=== PATIENT | female | born 1965 | race Hispanic/Latino ===

== ENCOUNTER 2017-10-14 07:37 | Inpatient (IN) | payer OTHER ==
[~2017-10-14] VITALS: Ht 167.6 cm; Wt 95.6 kg
[2017-10-14 08:04] LABS: POINT-OF-CARE METER ID UU13113778
[2017-10-14 08:21] LABS: HEMATOCRIT 34.2 % (36.0-46.0); MCH 26.5 PG (29.0-34.0); MCHC 32.7 G/DL (30.0-36.0); MCV 80.9 FL (83-99); MEAN PLAT.VOLUME 10.8 uM^3 (9.5-12.4); PLATELET COUNT 172 K/uL (156-360); RBC DIS.WIDTH-CV 13.4 % (11.8-14.6); RBC DIS.WIDTH-SD 39.4 % (39-53); RED BLOOD COUNT 4.23 M/uL (3.80-5.20); WHITE BLOOD COUNT 5.8 K/uL (4.1-10.2)
[2017-10-14 08:23] LABS: CARBON DIOXIDE (BICARBONATE) 25.1 MEQ/L (20-31)
[2017-10-14 08:31] LABS: CHLORIDE 103 mEq/L (99-109); SODIUM 136 mEq/L (136-147)
[2017-10-14 08:33] LABS: GLUCOSE 365 mg/dL (70-99)
[2017-10-14 08:35] LABS: ANION GAP 11 MEQ/L (2-14); TOTAL BILIRUBIN 0.5 mg/dL (0.0-1.0)
[2017-10-14 08:37] LABS: ALKALINE PHOSPHATASE 79 IU/L (3-129)
[2017-10-14 08:38] LABS: UREA NITROGEN (BUN) 11 mg/dL (9-23)
[2017-10-14 08:40] LABS: BILIRUBIN SMALL; BLOOD TRACE; COLOR ORANGE ((YELLOW)); GLUCOSE (STRIP) 1000; KETONES 40; PROTEIN (STRIP) 100; UROBILINOGEN 0.2 MG/DL (0.2-1.0)
[2017-10-14 08:40] LABS: LIPASE 8 U/L (1.0-51.0)
[2017-10-14 08:41] LABS: ADD MIUA? YES; LEUKOCYTES TRACE
[2017-10-14 08:43] LABS: GFR ESTIMATE (CALCULATED) > 59 mL/min/
[2017-10-14 08:54] LABS: ABS NEUTROPHIL COUNT 5.2; BAND NEUTROPHILS 18.1 % (0-8.0); EOSINOPHIL ABS CT 0; INSTRUMENT ABS NEUTROPHIL CT 4.8 K/uL; LYMPHOCYTES 6.9 % (15.0-45.0); PLAT.SUFFICIENCY ADEQUATE; POIKILOCYTOSIS 1+; SEG.NEUTROPHILS 72.4 % (46.0-76.0); SMUDGE CELLS 4.3
[2017-10-14 09:09] LABS: BACTERIA 1+ /HPF; EPITHELIAL CELLS RARE /HPF; MUCUS RARE /LPF; RED BLOOD CELLS 0-5 /HPF (0-5); UCUL ADDED? YES
[2017-10-14 09:10] LABS: CASTS NONE SEEN /LPF; CRYSTALS NONE SEEN
[2017-10-14] MEDS ORDERED: VERAPAMIL PO (12:42)
[2017-10-14] MEDS ORDERED: GLUCOPHAGE500 MG PO (12:43)
[2017-10-14] MEDS ORDERED: GLIMEPIRIDE PO (12:44)
[2017-10-14] MEDS ORDERED: OMEPRAZOLE20 M2 PO (12:45)
[2017-10-14 13:18] LABS: POINT-OF-CARE METER ID UU13113747
[2017-10-14 15:57] VITALS: BP 117/68
[2017-10-14 16:46] LABS: ANION GAP 16 MEQ/L (2-14); CHLORIDE 103 MEQ/L (99-109); GFR ESTIMATE (CALCULATED) > 59 mL/min/; GLUCOSE 351 mg/dL (70-99); POTASSIUM 3.5 MEQ/L (3.7-5.4); SAMPLE HEMOLYSIS CHECK 0; SAMPLE ICTERIC CHECK 0; SAMPLE LIPEMIA CHECK 0; SODIUM 137 MEQ/L (136-147); UREA NITROGEN (BUN) 12 mg/dL (9-23)
[2017-10-14 16:56] LABS: POINT-OF-CARE METER ID UU14162508
[2017-10-14 20:13] VITALS: BP 120/84
[2017-10-14 20:25] LABS: ANION GAP 11 MEQ/L (2-14); CHLORIDE 104 MEQ/L (99-109); GFR ESTIMATE (CALCULATED) > 59 mL/min/; GLUCOSE 341 mg/dL (70-99); POTASSIUM 3.6 MEQ/L (3.7-5.4); SAMPLE HEMOLYSIS CHECK 0; SAMPLE ICTERIC CHECK 0; SAMPLE LIPEMIA CHECK 0; SODIUM 136 MEQ/L (136-147); UREA NITROGEN (BUN) 11 mg/dL (9-23)
[2017-10-14 22:02] LABS: POINT-OF-CARE METER ID UU14162508
[2017-10-14 23:20] VITALS: BP 108/67
[2017-10-15 01:40] LABS: POINT-OF-CARE METER ID UU14162508
[2017-10-15 03:03] VITALS: BP 98/54
[2017-10-15 04:27] VITALS: BP 120/75
[2017-10-15 06:02] LABS: POINT-OF-CARE METER ID UU14208750
[2017-10-15 07:15] VITALS: BP 100/60
[2017-10-15 07:15] LABS: EOSINOPHIL (%) 0.3 % (0-5); HEMATOCRIT 30.3 % (36.0-46.0); IMMATURE GRANULOCYTE (%) 0.2 % (0.0-0.7); INSTRUMENT ABS NEUTROPHIL CT 4.4 K/uL; LYMPHOCYTE COUNT 1.3 K/uL (1.0-2.8); MCH 26.1 PG (29.0-34.0); MCV 81.7 FL (83-99); MEAN PLAT.VOLUME 11.6 uM^3 (9.5-12.4); MONOCYTE (%) 7.7 % (3-12); MONOCYTE COUNT 0.5 K/uL (0-0.8); NEUTROPHIL (%) 70.6 % (45-76); NEUTROPHIL COUNT 4.4 K/uL (1.8-6.4); PLATELET COUNT 163 K/uL (156-360); RBC DIS.WIDTH-CV 13.8 % (11.8-14.6); RBC DIS.WIDTH-SD 41.1 % (39-53); RED BLOOD COUNT 3.71 M/uL (3.80-5.20); WHITE BLOOD COUNT 6.2 K/uL (4.1-10.2)
[2017-10-15 07:37] LABS: ANION GAP 9 MEQ/L (2-14); CHLORIDE 108 MEQ/L (99-109); GFR ESTIMATE (CALCULATED) > 59 mL/min/; GLUCOSE 228 mg/dL (70-99); SAMPLE HEMOLYSIS CHECK 0; SAMPLE ICTERIC CHECK 0; SAMPLE LIPEMIA CHECK 0; SODIUM 138 MEQ/L (136-147); UREA NITROGEN (BUN) 13 mg/dL (9-23)
[2017-10-15 07:46] LABS: POTASSIUM 4.4 MEQ/L (3.7-5.4)
[2017-10-15 12:41] LABS: POINT-OF-CARE METER ID UU14162508
[2017-10-15 15:19] VITALS: BP 96/56
[2017-10-15 16:43] LABS: POINT-OF-CARE METER ID UU14314084
[2017-10-15 21:39] LABS: POINT-OF-CARE METER ID UU14208750
[2017-10-15 23:31] VITALS: BP 101/60
[2017-10-16 06:36] LABS: HEMATOCRIT 29.9 % (36.0-46.0); MCH 26.2 PG (29.0-34.0); MCHC 31.8 G/DL (30.0-36.0); MCV 82.6 FL (83-99); MEAN PLAT.VOLUME 11.8 uM^3 (9.5-12.4); PLATELET COUNT 150 K/uL (156-360); RBC DIS.WIDTH-CV 13.9 % (11.8-14.6); RBC DIS.WIDTH-SD 41.6 % (39-53); RED BLOOD COUNT 3.62 M/uL (3.80-5.20); WHITE BLOOD COUNT 5.7 K/uL (4.1-10.2)
[2017-10-16 06:49] LABS: POINT-OF-CARE METER ID UU14314084
[2017-10-16 07:14] LABS: ANION GAP 9 MEQ/L (2-14); CHLORIDE 106 MEQ/L (99-109); GFR ESTIMATE (CALCULATED) > 59 mL/min/; GLUCOSE 277 mg/dL (70-99); MAGNESIUM 1.5 mg/dl (1.3-2.7); POTASSIUM 3.8 MEQ/L (3.7-5.4); SAMPLE HEMOLYSIS CHECK 0; SAMPLE ICTERIC CHECK 0; SAMPLE LIPEMIA CHECK 0; SODIUM 139 MEQ/L (136-147); UREA NITROGEN (BUN) 12 mg/dL (9-23)
[2017-10-16 07:38] VITALS: BP 112/62
[2017-10-16 10:57] LABS: Estimated Average Glucose 315 mg/dL (70-123); HEMOGLOBIN A1c (GLYCOHEMOGLOB) 12.6 % HGB (Below 5.7)
[2017-10-16 11:23] LABS: POINT-OF-CARE METER ID UU14208750
[2017-10-16 11:30] VITALS: BP 98/58
[2017-10-16 15:33] VITALS: BP 108/58
[2017-10-16 17:37] LABS: POINT-OF-CARE METER ID UU14314084
[2017-10-16 21:46] LABS: POINT-OF-CARE METER ID UU14314084
[2017-10-17] VITALS (7 sets, daily range): BP systolic 126–180; BP diastolic 65–100
[2017-10-17 06:43] LABS: EOSINOPHIL (%) 0.2 % (0-5); IMMATURE GRANULOCYTE (%) 1.4 % (0.0-0.7); IMMATURE GRANULOCYTE COUNT 0.1 K/uL; INSTRUMENT ABS NEUTROPHIL CT 3.5 K/uL; LYMPHOCYTE COUNT 1.8 K/uL (1.0-2.8); MCH 26.3 PG (29.0-34.0); MCHC 31.6 G/DL (30.0-36.0); MCV 83.3 FL (83-99); MEAN PLAT.VOLUME 11.5 uM^3 (9.5-12.4); MONOCYTE (%) 6.4 % (3-12); MONOCYTE COUNT 0.4 K/uL (0-0.8); NEUTROPHIL (%) 60.3 % (45-76); NEUTROPHIL COUNT 3.5 K/uL (1.8-6.4); PLATELET COUNT 185 K/uL (156-360); RBC DIS.WIDTH-SD 42.2 % (39-53); RED BLOOD COUNT 3.84 M/uL (3.80-5.20); WHITE BLOOD COUNT 5.8 K/uL (4.1-10.2)
[2017-10-17 06:46] LABS: POINT-OF-CARE METER ID UU14314084
[2017-10-17 07:10] LABS: ANION GAP 6 MEQ/L (2-14); CHLORIDE 105 MEQ/L (99-109); GFR ESTIMATE (CALCULATED) > 59 mL/min/; GLUCOSE 247 mg/dL (70-99); POTASSIUM 3.9 MEQ/L (3.7-5.4); SAMPLE HEMOLYSIS CHECK 0; SAMPLE ICTERIC CHECK 0; SAMPLE LIPEMIA CHECK 0; SODIUM 137 MEQ/L (136-147); UREA NITROGEN (BUN) 12 mg/dL (9-23)
[2017-10-17 12:38] LABS: POINT-OF-CARE METER ID UU14314084
[2017-10-17 16:41] LABS: POINT-OF-CARE METER ID UU14208750
[2017-10-17 21:35] LABS: POINT-OF-CARE METER ID UU14208750
[2017-10-17 22:41] LABS: POINT-OF-CARE METER ID UU14314084
[2017-10-18 02:53] VITALS: BP 177/97
[2017-10-18 04:30] VITALS: BP 160/90
[2017-10-18 06:12] LABS: POINT-OF-CARE METER ID UU14208750
[2017-10-18 06:14] LABS: HEMATOCRIT 33.1 % (36.0-46.0); MCHC 31.7 G/DL (30.0-36.0); MCV 81.9 FL (83-99); NRBC (%) 0.4 /100 WBC (0-0); PLATELET COUNT 215 K/uL (156-360); RBC DIS.WIDTH-CV 13.8 % (11.8-14.6); RBC DIS.WIDTH-SD 41.5 % (39-53); RED BLOOD COUNT 4.04 M/uL (3.80-5.20); WHITE BLOOD COUNT 7.1 K/uL (4.1-10.2)
[2017-10-18 06:39] LABS: ANION GAP 7 MEQ/L (2-14); CHLORIDE 103 MEQ/L (99-109); GFR ESTIMATE (CALCULATED) > 59 mL/min/; GLUCOSE 177 mg/dL (70-99); POTASSIUM 3.7 MEQ/L (3.7-5.4); SAMPLE HEMOLYSIS CHECK 0; SAMPLE ICTERIC CHECK 0; SAMPLE LIPEMIA CHECK 0; SODIUM 138 MEQ/L (136-147); UREA NITROGEN (BUN) 7 mg/dL (9-23)
[2017-10-18 06:48] LABS: EOSINOPHIL (%) 0.6 % (0-5); IMMATURE GRANULOCYTE (%) 1.4 % (0.0-0.7); IMMATURE GRANULOCYTE COUNT 0.1 K/uL; INSTRUMENT ABS NEUTROPHIL CT 4.3 K/uL; LYMPHOCYTE COUNT 2.2 K/uL (1.0-2.8); MONOCYTE (%) 5.2 % (3-12); MONOCYTE COUNT 0.4 K/uL (0-0.8); NEUTROPHIL (%) 60.9 % (45-76); NEUTROPHIL COUNT 4.3 K/uL (1.8-6.4)
[2017-10-18 07:42] VITALS: BP 178/95
[2017-10-18 11:39] VITALS: BP 185/94
[2017-10-18 12:33] LABS: POINT-OF-CARE METER ID UU14208750
[2017-10-18 15:35] VITALS: BP 174/100
[2017-10-18 16:17] LABS: POINT-OF-CARE METER ID UU14208750
[2017-10-18 20:56] VITALS: BP 158/90
[2017-10-18 21:54] LABS: POINT-OF-CARE METER ID UU14208750
[2017-10-19] VITALS: BP 121/80; BP 131/80
[2017-10-19 04:06] VITALS: BP 145/79
[2017-10-19 06:54] LABS: POINT-OF-CARE METER ID UU14208750
[2017-10-19 07:10] VITALS: BP 158/80
[2017-10-19] MEDS ORDERED: LEVEMIR100 UNIT/2 SC (10:24)
[2017-10-19] MEDS ORDERED: APRESOLINE25 MG PO (10:24)
[2017-10-19] MEDS ORDERED: LISINOPRIL10 MG PO (10:24)
[2017-10-19] MEDS ORDERED: PERCOCET 5/31 TABLET PO (10:24)
[2017-10-19 11:38] LABS: POINT-OF-CARE METER ID UU14208750; POINT-OF-CARE USER ID PUTDRM
== END 2017-10-19 15:38 | disposition home or self-care (01) | DRG 871 ==
LOC: EME 07:37 → 2EAST 12:19 → ENRESERV 12:21 → CANRESERV 12:36 → ENRESERV 12:36 → 2EAST 12:39 → ENRESERV 12:51 → EDOF 13:35 → ENRESERV 13:59 → 2EAST 15:02
PROVIDERS: Emergency Medicine; Internal Medicine
DX: A41.9 Sepsis, unspecified organism (principal); J15.0 Pneumonia due to Klebsiella pneumoniae; N10 Acute pyelonephritis; E11.649 Type 2 diabetes mellitus with hypoglycemia without coma; E11.65 Type 2 diabetes mellitus with hyperglycemia; J90 Pleural effusion, not elsewhere classified; I10 Essential (primary) hypertension; E86.0 Dehydration; D64.9 Anemia, unspecified; Z68.34 Body mass index [BMI] 34.0-34.9, adult; R18.8 Other ascites; K21.9 Gastro-esophageal reflux disease without esophagitis; K29.70 Gastritis, unspecified, without bleeding; Z16.24 Resistance to multiple antibiotics; B96.1 Klebsiella pneumoniae [K. pneumoniae] as the cause of diseases classified elsewhere; B96.20 Unspecified Escherichia coli [E. coli] as the cause of diseases classified elsewhere; Z83.3 Family history of diabetes mellitus; Z79.84 Long term (current) use of oral hypoglycemic drugs; Z87.440 Personal history of urinary (tract) infections; Z79.4 Long term (current) use of insulin; Z82.49 Family history of ischemic heart disease and other diseases of the circulatory system
CPT/HCPCS: 71010; 74177; 80048; 80048 91; 80053; 81003; 82010; 82803; 82948; 83036; 83690; 83735; 85025; 85027; 87040; 87077; 87086; 87186; 87801; 93005; 94799; 99281; 99285; J0610; J0696; J1335; J1650; J1815; J1885; J2270; J2405; J2765; J7030; J7050

== ENCOUNTER 2017-11-17 14:21 | Emergency (ER) | payer MEDICAID ==
[~2017-11-17] VITALS: Ht 167.6 cm; Wt 90.3 kg
[~2017-11-17 14:21] MED LIST: APRESOLINE25 MG PO; GLIMEPIRIDE PO; GLUCOPHAGE500 MG PO; LEVEMIR100 UNIT/2 SC; LISINOPRIL10 MG PO; OMEPRAZOLE20 M2 PO; PERCOCET 5/31 TABLET PO; VERAPAMIL PO
[2017-11-17 15:30] LABS: HEMATOCRIT 35.3 % (36.0-46.0); HEMOGLOBIN 11.5 G/DL (11.9-15.5); MCH 26.5 PG (29.0-34.0); MCHC 32.6 G/DL (30.0-36.0); MCV 81.3 FL (83-99); PLATELET COUNT 245 K/uL (156-360); RBC DIS.WIDTH-CV 15.9 % (11.8-14.6); RBC DIS.WIDTH-SD 44.9 % (39-53); RED BLOOD COUNT 4.34 M/uL (3.80-5.20); WHITE BLOOD COUNT 11.5 K/uL (4.1-10.2)
[2017-11-17 15:38] LABS: ALBUMIN 3.9 g/dL (3.2-4.8); CHLORIDE 99 mEq/L (99-109); POTASSIUM 4.7 mEq/L (3.7-5.4); SODIUM 133 mEq/L (136-147)
[2017-11-17 15:41] LABS: TOTAL PROTEIN 8.2 g/dL (6.4-8.3)
[2017-11-17 15:42] LABS: TOTAL BILIRUBIN 0.7 mg/dL (0.0-1.0)
[2017-11-17 15:44] LABS: ALKALINE PHOSPHATASE 79 IU/L (3-129); CREATININE 1.1 mg/dL (0.6-1.3); GFR ESTIMATE (CALCULATED) 56 mL/min/
[2017-11-17 15:45] LABS: UREA NITROGEN (BUN) 11 mg/dL (9-23)
[2017-11-17 15:46] LABS: AST (GOT) 11 IU/L (2-34)
[2017-11-17 15:47] LABS: ALT (GPT) 19 IU/L (3-49)
[2017-11-17 15:50] LABS: GLUCOSE 513 mg/dL (70-99)
[2017-11-17 15:53] LABS: QUANTITATIVE HCG < 4.0 MIU/ML
[2017-11-17] MEDS ORDERED: APRESOLINE25 MG PO (16:55)
[2017-11-17] MEDS ORDERED: LISINOPRIL20 MG PO (16:55)
[2017-11-17] MEDS ORDERED: PRILOSEC20 MG PO (16:55)
[2017-11-17] MEDS ORDERED: AMARYL1 MG PO (16:55)
[2017-11-17] MEDS ORDERED: GLUCOPHAGE500 MG PO (16:55)
[2017-11-17] MEDS ORDERED: LEVEMIR100 UNIT/2 SC (16:55)
[2017-11-17 16:56] LABS: APPEARANCE CLEAR ((CLEAR)); BILIRUBIN NEGATIVE; BLOOD LARGE; COLOR STRAW ((YELLOW)); GLUCOSE (STRIP) >=500; KETONES NEGATIVE; LEUKOCYTES NEGATIVE; NITRITE NEGATIVE; PROTEIN (STRIP) NEGATIVE; SPECIFIC GRAVITY 1.026 (1.000-1.030); UROBILINOGEN 0.2 MG/DL (0.2-1.0)
[2017-11-17 17:02] LABS: BACTERIA RARE /HPF; EPITHELIAL CELLS RARE /HPF; MUCUS TRACE /LPF; RED BLOOD CELLS TNTC /HPF (0-5); UCUL ADDED? YES; WHITE BLOOD CELLS 20-30 /HPF (0-5)
[2017-11-17 18:12] VITALS: BP 114/80
== END 2017-11-17 18:12 | disposition home or self-care (01) ==
LOC: EME 14:21
DX: E11.9 Type 2 diabetes mellitus without complications (principal); I10 Essential (primary) hypertension; Z76.0 Encounter for issue of repeat prescription; Z79.4 Long term (current) use of insulin
CPT/HCPCS: 80053; 81003; 84702; 85027; 87077; 87086; 87186

== ENCOUNTER 2017-11-22 11:27 | Emergency (ER) | payer OTHER, MEDICAID ==
[~2017-11-22] VITALS: Ht 182.9 cm; Wt 90.9 kg
[~2017-11-22 11:27] MED LIST changes: +AMARYL1 MG PO; -GLIMEPIRIDE PO; +LISINOPRIL20 MG PO; +PRILOSEC20 MG PO
[2017-11-22 11:53] LABS: HEMATOCRIT 34.9 % (36.0-46.0); HEMOGLOBIN 11.2 G/DL (11.9-15.5); MCHC 32.1 G/DL (30.0-36.0); PLATELET COUNT 296 K/uL (156-360); RBC DIS.WIDTH-CV 15.8 % (11.8-14.6); RBC DIS.WIDTH-SD 46.1 % (39-53); RED BLOOD COUNT 4.31 M/uL (3.80-5.20); WHITE BLOOD COUNT 6.9 K/uL (4.1-10.2)
[2017-11-22 12:03] LABS: ALBUMIN 3.8 g/dL (3.2-4.8)
[2017-11-22 12:04] LABS: CHLORIDE 97 mEq/L (99-109); POTASSIUM 4.8 mEq/L (3.7-5.4); SODIUM 133 mEq/L (136-147)
[2017-11-22 12:05] LABS: APPEARANCE CLEAR ((CLEAR)); BILIRUBIN NEGATIVE; BLOOD MODERATE; COLOR YELLOW ((YELLOW)); GLUCOSE (STRIP) >=500; KETONES 5; LEUKOCYTES TRACE; NITRITE POSITIVE; PROTEIN (STRIP) 30; SPECIFIC GRAVITY 1.028 (1.000-1.030); UROBILINOGEN 0.2 MG/DL (0.2-1.0)
[2017-11-22 12:06] LABS: TOTAL PROTEIN 8.1 g/dL (6.4-8.3)
[2017-11-22 12:09] LABS: ALKALINE PHOSPHATASE 85 IU/L (3-129)
[2017-11-22 12:10] LABS: CREATININE 0.9 mg/dL (0.6-1.3); GFR ESTIMATE (CALCULATED) > 59 mL/min/
[2017-11-22 12:11] LABS: AST (GOT) 8 IU/L (2-34); UREA NITROGEN (BUN) 14 mg/dL (9-23)
[2017-11-22 12:13] LABS: ALT (GPT) 11 IU/L (3-49)
[2017-11-22 12:15] LABS: GLUCOSE 484 mg/dL (70-99); TOTAL BILIRUBIN 0.3 mg/dL (0.0-1.0)
[2017-11-22 12:19] LABS: BACTERIA RARE /HPF; EPITHELIAL CELLS RARE /HPF; MUCUS TRACE /LPF; RED BLOOD CELLS 0-5 /HPF (0-5); UCUL ADDED? YES; WHITE BLOOD CELLS 20-30 /HPF (0-5)
[2017-11-22 12:19] LABS: QUANTITATIVE HCG < 4.0 MIU/ML
[2017-11-22] MEDS ORDERED: KEFLEX500 MG PO (15:17)
[2017-11-22] MEDS ORDERED: ZOFRAN4 MG PO (15:18)
[2017-11-22] MEDS ORDERED: ULTRAM50 MG PO (15:18)
[2017-11-22 15:44] VITALS: BP 153/80
== END 2017-11-22 15:49 | disposition home or self-care (01) ==
LOC: EME 11:27
PROVIDERS: Physician Assistant
DX: N12 Tubulo-interstitial nephritis, not specified as acute or chronic (principal); E11.65 Type 2 diabetes mellitus with hyperglycemia; I10 Essential (primary) hypertension; Z87.442 Personal history of urinary calculi; Z79.84 Long term (current) use of oral hypoglycemic drugs
CPT/HCPCS: 74176; 80053; 81003; 82948; 84702; 85027; 87077; 87086; 87186; 99281; 99285; J0696; J2405; J3010; J7030

== ENCOUNTER 2017-11-24 19:07 | Emergency (ER) | payer OTHER, MEDICAID ==
[~2017-11-24] VITALS: Ht 160 cm; Wt 86.7 kg
[~2017-11-24 19:07] MED LIST changes: +KEFLEX500 MG PO; +ULTRAM50 MG PO; +ZOFRAN4 MG PO
[2017-11-24 20:48] LABS: HEMATOCRIT 36.5 % (36.0-46.0); HEMOGLOBIN 11.8 G/DL (11.9-15.5); MCH 25.9 PG (29.0-34.0); MCHC 32.3 G/DL (30.0-36.0); PLATELET COUNT 375 K/uL (156-360); RBC DIS.WIDTH-CV 16.1 % (11.8-14.6); RBC DIS.WIDTH-SD 46.4 % (39-53); RED BLOOD COUNT 4.56 M/uL (3.80-5.20); WHITE BLOOD COUNT 7.6 K/uL (4.1-10.2)
[2017-11-24 20:58] LABS: ALBUMIN 3.6 g/dL (3.2-4.8); CHLORIDE 95 mEq/L (99-109); POTASSIUM 4.8 mEq/L (3.7-5.4); SODIUM 130 mEq/L (136-147)
[2017-11-24 21:01] LABS: TOTAL PROTEIN 7.6 g/dL (6.4-8.3)
[2017-11-24 21:03] LABS: TOTAL BILIRUBIN 0.3 mg/dL (0.0-1.0)
[2017-11-24 21:04] LABS: ALKALINE PHOSPHATASE 77 IU/L (3-129); CREATININE 0.9 mg/dL (0.6-1.3); GFR ESTIMATE (CALCULATED) > 59 mL/min/
[2017-11-24 21:05] LABS: UREA NITROGEN (BUN) 17 mg/dL (9-23)
[2017-11-24 21:06] LABS: AST (GOT) 9 IU/L (2-34)
[2017-11-24 21:07] LABS: ALT (GPT) 9 IU/L (3-49)
[2017-11-24 21:08] LABS: GLUCOSE 403 mg/dL (70-99)
[2017-11-24 21:13] LABS: QUANTITATIVE HCG < 4.0 MIU/ML
[2017-11-24 23:38] LABS: APPEARANCE CLEAR ((CLEAR)); BILIRUBIN NEGATIVE; BLOOD NEGATIVE; COLOR YELLOW ((YELLOW)); GLUCOSE (STRIP) >=500; KETONES 80; LEUKOCYTES TRACE; NITRITE NEGATIVE; PROTEIN (STRIP) NEGATIVE; SPECIFIC GRAVITY 1.029 (1.000-1.030); UROBILINOGEN 0.2 MG/DL (0.2-1.0)
[2017-11-24 23:42] LABS: BACTERIA RARE /HPF; EPITHELIAL CELLS RARE /HPF; MUCUS TRACE /LPF; RED BLOOD CELLS 0-5 /HPF (0-5); UCUL ADDED? YES
[2017-11-25] MEDS ORDERED: LISINOPRIL20 MG PO (01:56)
[2017-11-25] MEDS ORDERED: PAIN RELIEVER500 MG PO (02:05)
[2017-11-25] MEDS ORDERED: PEPCID20 MG PO (02:07)
[2017-11-25 03:52] VITALS: BP 179/106
[2017-11-28] MEDS ORDERED: NITROFURANTOIN100 MG PO (16:38)
[2017-11-28] MEDS ORDERED: HYDRALAZINE HCL25 MG PO (16:39)
== END 2017-11-25 04:10 | disposition home or self-care (01) ==
LOC: EME 19:07
PROVIDERS: Physician Assistant
DX: E11.65 Type 2 diabetes mellitus with hyperglycemia (principal); R10.9 Unspecified abdominal pain; Z79.84 Long term (current) use of oral hypoglycemic drugs; I10 Essential (primary) hypertension; Z87.442 Personal history of urinary calculi
CPT/HCPCS: 76770; 80053; 81003; 82010; 82948; 84702; 85027; 87077; 87086; 87186; 99281; 99285; J2405; J2765; J3010; J7030; S0028

== ENCOUNTER 2018-01-03 15:33 | Emergency (ER) | payer OTHER ==
[~2018-01-03] VITALS: Ht 167.6 cm; Wt 95.2 kg
[~2018-01-03 15:33] MED LIST changes: +HYDRALAZINE HCL25 MG PO; +NITROFURANTOIN100 MG PO; +PAIN RELIEVER500 MG PO; +PEPCID20 MG PO
[2018-01-03] MEDS ORDERED: LISINOPRIL40 MG PO (17:49)
[2018-01-03] MEDS ORDERED: AMARYL1 MG PO (17:49)
[2018-01-03] MEDS ORDERED: GLUCOPHAGE500 MG PO (17:49)
[2018-01-03] MEDS ORDERED: OMEPRAZOLE20 M2 PO (17:49)
[2018-01-03 19:03] VITALS: BP 152/109
== END 2018-01-03 19:03 | disposition home or self-care (01) ==
LOC: EME 15:33
DX: I10 Essential (primary) hypertension (principal); E11.9 Type 2 diabetes mellitus without complications; Z76.0 Encounter for issue of repeat prescription; Z79.84 Long term (current) use of oral hypoglycemic drugs
CPT/HCPCS: 82948; 99281; 99283

== ENCOUNTER 2018-02-07 17:00 | Emergency (ER) | payer OTHER ==
[~2018-02-07] VITALS: Ht 167.6 cm; Wt 99.3 kg
[~2018-02-07 17:00] MED LIST changes: +LISINOPRIL40 MG PO
[2018-02-07] MEDS ORDERED: GLUCOPHAGE1000 MG PO (17:47)
[2018-02-07] MEDS ORDERED: ZESTRIL40 MG PO (17:47)
[2018-02-07] MEDS ORDERED: PRILOSEC OTC20 MG PO (17:47)
[2018-02-07] MEDS ORDERED: AMARYL1 MG PO (17:47)
[2018-02-07 18:03] VITALS: BP 156/106
== END 2018-02-07 18:06 | disposition home or self-care (01) ==
LOC: EME 17:00
DX: Z76.0 Encounter for issue of repeat prescription (principal); E11.65 Type 2 diabetes mellitus with hyperglycemia; Z79.84 Long term (current) use of oral hypoglycemic drugs; I10 Essential (primary) hypertension; K21.9 Gastro-esophageal reflux disease without esophagitis
CPT/HCPCS: 82948; 99281; 99284

== ENCOUNTER 2018-02-22 17:14 | Emergency (ER) | payer OTHER ==
[~2018-02-22] VITALS: Ht 170.2 cm; Wt 96.2 kg
[~2018-02-22 17:14] MED LIST changes: +GLUCOPHAGE1000 MG PO; +PRILOSEC OTC20 MG PO; +ZESTRIL40 MG PO
[2018-02-22 17:30] VITALS: BP 166/105
[2018-02-22] MEDS ORDERED: OMEPRAZOLE20 M2 PO (18:27)
[2018-02-22] MEDS ORDERED: LISINOPRIL40 MG PO (18:27)
[2018-02-22] MEDS ORDERED: GLUCOPHAGE1000 MG PO (18:27)
[2018-02-22] MEDS ORDERED: AMARYL1 MG PO (18:27)
== END 2018-02-22 19:01 | disposition left against medical advice (07) ==
LOC: EME 17:14 → RME 17:14
DX: Z76.0 Encounter for issue of repeat prescription (principal); I10 Essential (primary) hypertension; E11.9 Type 2 diabetes mellitus without complications; K21.9 Gastro-esophageal reflux disease without esophagitis
CPT/HCPCS: 99281; 99283

== ENCOUNTER 2018-05-02 15:19 | Emergency (ER) | payer OTHER ==
[~2018-05-02] VITALS: Ht 165.1 cm; Wt 98.8 kg
[2018-05-02] MEDS ORDERED: METFORMIN HCL1000 MG PO (17:04)
[2018-05-02] MEDS ORDERED: GLIMEPIRIDE1 MG PO (17:04)
[2018-05-02] MEDS ORDERED: LISINOPRIL40 MG PO (17:04)
[2018-05-02] MEDS ORDERED: OMEPRAZOLE20 MG PO (17:04)
[2018-05-02 17:22] VITALS: BP 136/74
== END 2018-05-02 17:30 | disposition home or self-care (01) ==
LOC: EME 15:19 → EXP 15:19
DX: E11.9 Type 2 diabetes mellitus without complications (principal); I10 Essential (primary) hypertension; Z76.0 Encounter for issue of repeat prescription; Z79.84 Long term (current) use of oral hypoglycemic drugs
CPT/HCPCS: 99281; 99283

== ENCOUNTER 2018-05-24 15:53 | Emergency (ER) | payer SELFPAY ==
[~2018-05-24] VITALS: Ht 167.6 cm; Wt 98.0 kg
[~2018-05-24 15:53] MED LIST changes: +GLIMEPIRIDE1 MG PO; +METFORMIN HCL1000 MG PO; +OMEPRAZOLE20 MG PO
[2018-05-24] MEDS ORDERED: OMEPRAZOLE20 M4 PO (17:00)
[2018-05-24] MEDS ORDERED: AMARYL1 MG PO (17:00)
[2018-05-24] MEDS ORDERED: LISINOPRIL40 MG PO (17:00)
[2018-05-24] MEDS ORDERED: METFORMIN HCL1000 MG PO (17:00)
[2018-05-24 17:32] VITALS: BP 125/96
== END 2018-05-24 17:32 | disposition home or self-care (01) ==
LOC: EME 15:53
DX: Z76.0 Encounter for issue of repeat prescription (principal); E11.9 Type 2 diabetes mellitus without complications; Z79.84 Long term (current) use of oral hypoglycemic drugs; I10 Essential (primary) hypertension; K21.9 Gastro-esophageal reflux disease without esophagitis
CPT/HCPCS: 99281; 99283

== ENCOUNTER 2018-06-14 14:59 | Emergency (ER) | payer OTHER ==
[~2018-06-14] VITALS: Ht 170.2 cm; Wt 98.0 kg
[~2018-06-14 14:59] MED LIST changes: +OMEPRAZOLE20 M4 PO
[2018-06-14] MEDS ORDERED: LISINOPRIL40 MG PO (15:22)
[2018-06-14] MEDS ORDERED: METFORMIN HCL1000 MG PO (15:22)
[2018-06-14] MEDS ORDERED: OMEPRAZOLE20 MG PO (15:22)
[2018-06-14] MEDS ORDERED: GLIMEPIRIDE1 MG PO (15:22)
[2018-06-14 15:42] LABS: BASOPHIL (%) 0.1 % (0-1); EOSINOPHIL (%) 0.7 % (0-5); EOSINOPHIL COUNT 0.1 K/uL (0-0.3); HEMATOCRIT 34.4 % (36.0-46.0); HEMOGLOBIN 11.4 G/DL (11.9-15.5); IMMATURE GRANULOCYTE (%) 0.4 % (0.0-0.7); LYMPHOCYTE (%) 33.8 % (15-42); LYMPHOCYTE COUNT 2.7 K/uL (1.0-2.8); MCH 27.9 PG (29.0-34.0); MCHC 33.1 G/DL (30.0-36.0); MCV 84.1 FL (83-99); MONOCYTE (%) 6.7 % (3-12); MONOCYTE COUNT 0.5 K/uL (0-0.8); NEUTROPHIL (%) 58.3 % (45-76); NEUTROPHIL COUNT 4.7 K/uL (1.8-6.4); PLATELET COUNT 249 K/uL (156-360); RBC DIS.WIDTH-CV 14.6 % (11.8-14.6); RBC DIS.WIDTH-SD 45.4 % (39-53); RED BLOOD COUNT 4.09 M/uL (3.80-5.20)
[2018-06-14 15:55] LABS: CHLORIDE 98 mEq/L (99-109); POTASSIUM 5.9 mEq/L (3.7-5.4); SODIUM 130 mEq/L (136-147)
[2018-06-14 15:57] LABS: GLUCOSE 392 mg/dL (70-99)
[2018-06-14 16:00] LABS: CREATININE 0.9 mg/dL (0.6-1.3); GFR ESTIMATE (CALCULATED) > 59 mL/min/
[2018-06-14 16:01] LABS: UREA NITROGEN (BUN) 14 mg/dL (9-23)
[2018-06-14 16:11] LABS: APPEARANCE SL.HAZY ((CLEAR)); BILIRUBIN NEGATIVE; BLOOD LARGE; COLOR YELLOW ((YELLOW)); GLUCOSE (STRIP) >=500; KETONES NEGATIVE; LEUKOCYTES TRACE; NITRITE NEGATIVE; PROTEIN (STRIP) 30; SPECIFIC GRAVITY 1.021 (1.000-1.030); UROBILINOGEN 0.2 MG/DL (0.2-1.0)
[2018-06-14 16:40] LABS: RED BLOOD CELLS TNTC /HPF (0-5)
[2018-06-14 16:41] LABS: BACTERIA RARE /HPF; EPITHELIAL CELLS 1+ /HPF; MUCUS NONE SEEN /LPF
[2018-06-14 18:11] VITALS: BP 136/84
== END 2018-06-14 18:13 | disposition home or self-care (01) ==
LOC: EME 14:59
PROVIDERS: Physician Assistant
DX: E11.65 Type 2 diabetes mellitus with hyperglycemia (principal); I10 Essential (primary) hypertension; Z76.0 Encounter for issue of repeat prescription; Z79.84 Long term (current) use of oral hypoglycemic drugs
CPT/HCPCS: 80048; 81003; 82948; 85025; 99281; 99285